=== PATIENT | female | born 1980 | race Caucasian/White ===

== ENCOUNTER 2016-09-05 08:33 | Emergency (ER) ==
[2016-09-05 08:40] VITALS: BP 125/86; TEMP 98.6; BMI 32.0
[2016-09-05] MEDS ORDERED: ZOFRAN 4 MG/2 ML IM STA (08:59)
[2016-09-05] MEDS ORDERED: MORPHINE 4 MG/ML SYRINGE IM STA (08:59)
[2016-09-05] MEDS ORDERED: LIDOCAINE 1 % AMP 5 ML (SUTURES) IM STA (09:00)
[2016-09-05] MEDS ORDERED: ROCEPHIN IM STA (09:00)
--- NOTE | 2016-09-05 09:10 | ED.PDOC ---
General ED Provider: Dr. SHANNAN SANDHU Chief Complaint: Tooth Problem Stated Complaint: DENTAL PAIN Time Seen by Physician: 08:45 Mode of Arrival: Walk-In Information Source: Patient Exam Limitations: No limitations Nursing and Triage Documentation Reviewed and Agree: Yes EENT Complaint Exam - Dental/Oral Complaint/Exam Mechanism of Injury: Unknown Symptoms Are: Still present Timing: Constant Initial Severity: Moderate Current Severity: Moderate Character: Reports: Aching Aggravating: Reports: None Alleviating: Reports: None Associated Signs and Symptoms: Denies: Swelling, Discharge, Fever, Foul odor, Foul taste in mouth Related History: Reports: Similar episode Cardiac Risk Factors: Reports: None Dental/Oral Surgical History: Reports: None Tooth Findings: Present: Gross caries Cervical Lymphadenopathy Present: No Facial Swelling Present: No Bleeding Present: No Septal Hematoma: No Foreign Body Present: No Dysphagia Present: No Drooling Present: No Asymmetrical Tonsillar Swelling Present: No Uvula Midline: No Julia-tonsillar Fluctuence: No Trismus Present: No Palatal Petechiae Present: No Scarlatinaform Rash Present: No Teeth Picture: 1 - DECAY Differential Diagnoses: Dental Caries, Fractured Tooth Review of Systems - Review Of Systems Constitutional: Reports: No symptoms Eyes: Reports: No symptoms Ears, Nose, Mouth, Throat: Reports: No symptoms Respiratory: Reports: No symptoms Cardiac: Reports: No symptoms GI: Reports: No symptoms : Reports: No symptoms Musculoskeletal: Reports: No symptoms Skin: Reports: No symptoms Neurological: Reports: No symptoms Endocrine: Reports: No symptoms Hematologic/Lymphatic: Reports: No symptoms All Other Systems: Reviewed and Negative Past Medical History - Past Medical History Previously Healthy: Yes Endocrine: Reports: None Cardiovascular: Reports: None Respiratory: Reports: None Hematological: Reports: None Gastrointestinal: Reports: None Genitourinary: Reports: None Neuro/Psych: Reports: Bipolar Disorder Musculoskeletal: Reports: None Cancer: Reports: None Last Menstrual Period: AUGUST 10 - Surgical History General Surgical History: Reports: None - Family History Family History: Reports: None - Social History Smoking Status: Current every day smoker Hx Substance Use: No Alcohol Screening: None - Immunizations Tetanus Shot up to Date: No Physical Exam - Physical Exam Appearance: Well-appearing, No pain distress, Well-nourished Eyes: JARETT, EOMI, Conjunctiva clear ENT: Ears normal, Nose normal, Oropharynx normal Respiratory: Airway patent, Breath sounds clear, Breath sounds equal, Respirations nonlabored Cardiovascular: RRR, Pulses normal, No rub, No murmur GI/: Soft, Nontender, No masses, Bowel sounds normal, No Organomegaly Musculoskeletal: Normal strength, ROM intact, No edema, No calf tenderness Skin: Warm, Dry, Normal color Neurological: Sensation intact, Motor intact, Reflexes intact, Cranial nerves intact, Alert, Oriented Psychiatric: Affect appropriate, Mood appropriate Critical Care Note - Critical Care Note Total Time (mins): 0 Course - Course Orders, Labs, Meds: Orders Category Date Time Status Ceftriaxone Sodium [Rocephin] MEDS 09/05/16 09:00 Discontinued 1 gm IM ONCE STA Lidocaine HCl/Pf [Lidocaine 1 % Amp 5 ml (Sutures)] MEDS 09/05/16 09:00 Discontinued 2.1 ml IM ONCE STA Morphine Sulfate [Morphine 4 mg/ml Syringe] MEDS 09/05/16 08:59 Discontinued 4 mg IM ONCE STA Ondansetron HCl/Pf [Zofran 4 mg/2 ml] MEDS 09/05/16 08:59 Discontinued 4 mg IM ONCE STA Medications Discontinued Medications Generic Name Dose Route Start Last Admin Trade Name Spencerq PRN Reason Stop Dose Admin Ceftriaxone Sodium 1 gm 09/05/16 09:00 Rocephin IM 09/05/16 09:01 ONCE STA Lidocaine HCl 2.1 ml 09/05/16 09:00 Lidocaine 1 % Amp 5 Ml (Sutures) IM 09/05/16 09:01 ONCE STA Morphine Sulfate 4 mg 09/05/16 08:59 Morphine 4 Mg/Ml Syringe IM 09/05/16 09:00 ONCE STA Ondansetron HCl 4 mg 09/05/16 08:59 Zofran 4 Mg/2 Ml IM 09/05/16 09:00 ONCE STA Vital Signs: Temp Pulse Resp BP Pulse Ox 09/05/16 08:36 98.6 F 85 16 125/86 98 Departure - Departure Time of Disposition: 09:09 Disposition: HOME SELF-CARE Discharge Problem: Toothache Instructions: Toothache (ED), Dental Caries (ED) Condition: Good Pt referred to PMD for follow-up: No Additional Instructions: Please call your Family Physician as soon as possible to schedule a follow-up appointment. Allergies/Adverse Reactions: Allergies cephalexin [From Keflex] Adverse Reaction (Verified 09/05/16 08:35) Home Medications: Ambulatory Orders Fluoxetine HCl [Prozac] 40 mg PO DAILY 09/05/16 Hydrocodone Bit/Acetaminophen [[place] 10-325] 1 each PO Q6HR 09/05/16 [place] Carbonate 300 mg PO DAILY 09/05/16 Mirtazapine [Remeron] 45 mg PO DAILY 09/05/16 Disposition Discussed With: Patient
== END 2016-09-05 09:50 | disposition home or self-care (01) ==
LOC: ED 08:33
DX: K08.89 Other specified disorders of teeth and supporting structures (principal); K02.7 Dental root caries; F17.210 Nicotine dependence, cigarettes, uncomplicated
CPT/HCPCS: 96372; 99283